=== PATIENT | female | born 1960 | race Hispanic/Latino ===

== ENCOUNTER 2024-07-06 19:02 | Emergency (ER) | payer SELFPAY ==
[~2024-07-06 19:02] MED LIST: ASPIRIN LOW81 M1 PO; CIPROFLOXACN500 MG PO; ENALAPRIL2.5 MG PO; HYDROCHLOROTH12.5 MG PO; NAPROXEN EC500 MG PO; PRAVASTATIN SOD10 MG PO; ZPAK PO
[2024-07-06] MEDS ORDERED: IPRATROPIUM BROMIDE 0.5 MG/2.5 ML SOL IN ONE (19:30)
[2024-07-06] MEDS ORDERED: ALBUTEROL SULFATE 2.5 MG VIAL NEB ONE (19:35)
[2024-07-06 19:37] VITALS: BP 132/79
[2024-07-06] MEDS ORDERED: ALBUTEROL108 MCG/AC PO (21:46)
[2024-07-06] MEDS ORDERED: DEXAMETHASON6 MG PO (21:46)
[2024-07-06] MEDS ORDERED: DEXAMETHASONE SOD. PHOSPHATE 10 MG/ML VIAL IV ONE (21:50)
[2024-07-06] MEDS ORDERED: DEXAMETHASONE SOD. PHOSPHATE 10 MG/ML VIAL IM ONE (21:55)
[2024-07-06 22:14] VITALS: BP 132/79
== END 2024-07-06 22:14 | disposition home or self-care (01) | DRG 203 ==
LOC: ED 19:02
DX: J45.909 Unspecified asthma, uncomplicated (principal)
CPT/HCPCS: J1100